=== PATIENT | female | born 1985 | race African-American/Black ===

== ENCOUNTER 2021-05-05 03:01 | Emergency (ER) | payer SELFPAY ==
[~2021-05-05] VITALS: Ht 172.7 cm; Wt 82.0 kg
[2021-05-05] MEDS ORDERED: SODIUM CHLORIDE 0.9% 1,000 ML IV ONE (03:15)
[2021-05-05 04:08] LABS: BASOPHILS % 0.9 % (0.0-2.0); EOSINOPHILS % 2.4 % (0.0-5.0); HEMOGLOBIN. 7.9 g/dL (12.0-16.0); LYMPHOCYTES % 33.8 % (20.0-50.0); MEAN CORPUSCULAR HEMOGLOBIN 17.5 pg (28.0-32.0); MEAN CORPUSCULAR VOLUME 59.8 fL (81.0-99.0); MEAN PLATELET VOLUME 8.3 fl (7.4-10.4); MONOCYTES % 7.6 % (2.0-8.0); NEUTROPHILS % 55.3 % (40.0-76.0); PLATELET 339 x1000/uL (130-400); RED BLOOD CELL COUNT 4.51 mill/uL (4.2-5.4); RED CELL DISTRIBUTION WIDTH 23.4 % (11.6-14.6)
[2021-05-05 04:19] LABS: HCG SCREEN NEGATIVE
[2021-05-05 04:22] LABS: CHLORIDE 109 mEq/L (98-107)
[2021-05-05 04:26] LABS: ETHANOL BLOOD < 10 mg/dL
[2021-05-05 05:00] VITALS: BP 125/72
[2021-05-05 07:22] LABS: PLATELET ESTIMATE NORMAL
== END 2021-05-05 06:45 | disposition home or self-care (01) ==
LOC: ER 03:01
DX: R55 Syncope and collapse (principal); I10 Essential (primary) hypertension
CPT/HCPCS: 36415; 80053; 80320; 84703; 85025; 93005; 99284; J7030; G0480